=== PATIENT | female | born 1955 | race Caucasian/White ===

== ENCOUNTER 2019-08-04 09:54 | Day surgery (SDC) | payer BC ==
[~2019-08-04] VITALS: Ht 162.6 cm; Wt 53.5 kg
[2019-08-04] VITALS (17 sets, daily range): BP systolic 97–126; BP diastolic 53–77
[~2019-08-04 09:54] MED LIST: CALC-909 PO; CETI10CA5 PO; CHOL200079 PO; MAGN250T10 PO; MULT-1192 PO; POTA99TA21 PO; SODIUM CHLORIDE 0.9% 1000ML 1,000 ML IV ONE
[2019-08-04] MEDS ORDERED: IOHEXOL-350 50ML VIAL IV ONE (10:36)
[2019-08-04] MEDS ORDERED: INDOMETHACIN 50 MG SUPP.RECT RC SCH (10:45)
[2019-08-04] MEDS ORDERED: PROPOFOL 10 MG/ML 20ML VIAL IV ONE ×2 (10:46)
[2019-08-04] MEDS ORDERED: SUCCINYLCHOLINE CHLORIDE 20 MG/ML 10 ML VIAL ONE (10:47)
== END 2019-08-04 13:55 | disposition home or self-care (01) ==
LOC: ENDO 09:54 → DAH 09:54 → ENDO 13:55
PROVIDERS: ATTEND Internal Medicine Gastroenterology
DX: R93.2 Abnormal findings on diagnostic imaging of liver and biliary tract (principal); M81.0 Age-related osteoporosis without current pathological fracture; Z86.010 Personal history of colon polyps; Z90.710 Acquired absence of both cervix and uterus; Z98.890 Other specified postprocedural states; Z72.89 Other problems related to lifestyle; Z79.899 Other long term (current) drug therapy; Z87.891 Personal history of nicotine dependence
CPT/HCPCS: 43264; 43274; 74328; A4215; A4221; A4222; A4223; A4606; A4657; A4663; C1769; C1773 ×3; C2625; J0330; J2704 ×2; J7030; Q9967; 74330

== ENCOUNTER 2019-11-23 10:00 | Day surgery (SDC) | payer BC ==
[2019-11-23] VITALS (17 sets, daily range): BP systolic 97–141; BP diastolic 54–78
[~2019-11-23] VITALS: Ht 162.6 cm; Wt 54.0 kg
[2019-11-23] MEDS ORDERED: IOHEXOL-350 50ML VIAL IV ONE ×2 (10:21)
[2019-11-23] MEDS ORDERED: URSO500T10 PO (11:17)
[2019-11-23] MEDS ORDERED: INDOMETHACIN 50 MG SUPP.RECT RC SCH (11:30)
[2019-11-23] MEDS ORDERED: DEXAMETHASONE SOD PHOSPHATE 10MG/ML 1ML VIAL ONE (12:08)
[2019-11-23] MEDS ORDERED: PROPOFOL 10 MG/ML 20ML VIAL IV ONE ×2 (12:08→12:47)
[2019-11-23] MEDS ORDERED: LIDOCAINE PF 2% 5ML ABBOJECT ONE (12:08)
[2019-11-23] MEDS ORDERED: FENTANYL CITRATE PF 50 MCG/1 ML 2ML VIAL ONE (12:09)
[2019-11-23] MEDS ORDERED: EPHEDRINE SULFATE 50 MG/ML AMPULE ONE (13:03)
== END 2019-11-23 15:08 | disposition home or self-care (01) ==
LOC: ENDO 10:00 → DAH 10:00 → ENDO 15:08
PROVIDERS: ATTEND Internal Medicine
DX: K80.50 Calculus of bile duct without cholangitis or cholecystitis without obstruction (principal); K83.8 Other specified diseases of biliary tract; M81.0 Age-related osteoporosis without current pathological fracture; M19.90 Unspecified osteoarthritis, unspecified site; Z79.899 Other long term (current) drug therapy; Z98.890 Other specified postprocedural states; Z90.710 Acquired absence of both cervix and uterus; Z72.89 Other problems related to lifestyle; Z86.010 Personal history of colon polyps; Z87.891 Personal history of nicotine dependence
CPT/HCPCS: 36415; 43265; 43273; 43275; 74330; 87635; A4215; A4221; A4222; A4223; A4606; A4657; A4663; C1769; C1773; J1100; J2001; J2704 ×2; J3010; J3490; J7030; Q9967 ×2; 43249; 43277